=== PATIENT | female | born 1980 | race Caucasian/White ===

== ENCOUNTER 2024-05-03 15:34 | Outpatient (CLI) | payer BC, SELFPAY ==
--- NOTE | 2024-05-03 15:39 | MR_ITS ---
WS: [id number] MRI CERVICAL SPINE NONCONTRAST TECHNIQUE: Sagittal T1, T2 and STIR imaging. Axial T2, gradient, and fiesta imaging. CLINICAL INFORMATION: CERVICAL RADICULOPATHY COMPARISON: None. FINDINGS: Straightening of the normal cervical doses. Moderate spondylitic changes. Small disc protrusions C5-C 6 and C6-C7. C2-C3: Mild disc bulging. Mild facet arthropathy. Mild LEFT foraminal narrowing. C3-C4: Mild disc bulging. Mild facet arthropathy. Mild LEFT bony foraminal narrowing. C4-C5: Disc osteophyte complex with endplate ridging. Mild LEFT and no significant RIGHT foraminal na rrowing. Moderate LEFT facet arthropathy. C5-C6: Small central disc protrusion. Slight indentation on the cervical cord with mild central canal stenosis. Moderate facet arthropathy. Foramen are patent. C6-C7: Slight retrolisthesis. Disc osteophyte complex and small central and LEFT paracentral protrusi on. Mild to moderate central canal stenosis. Moderate to severe LEFT and moderate RIGHT bony foramina l narrowing. Mild facet arthropathy. C7-T1: Disc osteophyte ridging. Moderate LEFT and mild RIGHT bony foraminal narrowing. Spinal canal i s patent. Visualized brain stem structures: Normal. Prevertebral soft tissues: Normal. MR/MR cervical spin wo con* [id number] IMPRESSION: 1. Straightening of the normal cervical lordosis with moderate spondylitic leelee nges. 2. Mild central canal stenosis C5-C6 and mild to moderate central canal stenos is C6-7 with central and LEFT paracentral disc osteophyte protrusion. Slight in dentation of the cervical cord at these levels. 3. Moderate to severe LEFT C6-7 bony foraminal narrowing. Moderate LEFT C7-T1 bony foraminal narrowing.
== END 2024-05-03 15:35 | disposition home or self-care (01) ==
LOC: RAD 15:37
PROVIDERS: PCP Radiology Diagnostic Radiology; Visit Provider Radiology Diagnostic Radiology
DX: M54.12 Radiculopathy, cervical region (principal); M25.78 Osteophyte, vertebrae; M99.61 Osseous and subluxation stenosis of intervertebral foramina of cervical region; M47.892 Other spondylosis, cervical region
CPT/HCPCS: 72141